=== PATIENT | female | born 1990 | race Caucasian/White ===

== ENCOUNTER 2024-11-30 11:04 | Outpatient (AMB) | payer OTHER, SELFPAY ==
--- OUTSIDE RECORDS SUMMARY | 2024-11-29 06:30 | XMS_ITS ---
Author Organization [facility] [address] Address [address] [place] [address] Care Team Providers Care Wet Sander Name Role Phone VICTOR HUGO THOMPSON Unavailable [phone] Encounters Encounter Location Date Provider Diagnosis [facility] [address] [place] [address] 11/29/2024 VICTOR HUGO THOMPSON Plan Of Treatment No Information Progress Notes * Mee CHAUDOB: 1 (34 yo F)Acc No.[id number]:11/29/2024 Progress Notes Patient: Srinivas CHAKRABORTYMee AGUILLON Provider: Amelia THOMPSON PA-C :1990 A ge:34 Y S ex:Female Date:11/29/2024 Address:[address] [place], [place] [id number] Subjective: * Chief Complaints: * * Medical History: Objective: * Vitals: Assessment: Plan: * Treatment: * Images: Billing Information: * Visit Code: * Procedure Codes: Care Plan Details* * Electronic signature of SHOBHA THOMPSON PA-C, [id number] on 11/30/2024 at 11:13 AM EDT Sign off status: Pending * Provider: Amelia THOMPSON PA-C Date: 11/29/2024 Generated for Luda duncan/[place]/eTransmitting on: 11/30/2024 11:13 AM EDT
--- NOTE | 2024-11-30 11:08 | MHC.PC.OV ---
Vital Signs 11/30/24 11:16 Height 5 ft Weight 123 lb 2 oz BMI 24.0 BP 98/67 Blood Pressure Location Lt brachial Position Sitting Respiration 12 Pulse 62 Pulse Source Pulse Oximeter Temp 97.1 F Temp Source Oral Pulse Oximetry (%) 99 Oxygen Delivery Method Room Air Intake Visit Reasons: CPE? Intake Note: New patient to establish care and cpe. Consumer Marketing Analyst Required: No Allergies amoxicillin Allergy (Severe, Verified 11/30/24 11:15) Hives nitrofurantoin (From Macrobid) Allergy (Severe, Verified 11/30/24 11:15) Hives Penicillins Allergy (Severe, Verified 11/30/24 11:15) Hives Sulfa (Sulfonamide Antibiotics) Allergy (Severe, Verified 11/30/24 11:15) Hives Medication List - Last Reviewed 11/30/24 by Abbi Jones MA No Known Home Meds Tobacco use date assessed: 11/30/24 Dental Screening Dental Screen Date: 11/30/24 Did you have a dental visit in the last 12 months?: Yes Did you have a dental problem in the last 6 months where you did not have access to dental care?: No Was dental information given to patient?: Patient has dentist HPI HPI Comments History of Present Illness Details 34 y/o F with MDD, PEARL, childhood Asthma, Hx of STD, acne, family hx breast ca, PMDD, Hx of H Pylori, Vit D def, Zinc def, Iodine def. Surgery:wisdom teeth Fhx: MGM vaginal & breast ca; MGF Ca unsure kind; PGF prostate Ca; PGM . Mom and dad alive and well. No siblings. No children. 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 - Previous asthma treatment; no current inhaler use. - Acne complaints with lesions on the back. - Positive test for low-level H. pylori; prior supplement treatment ineffective. - Hypothyroid-like symptoms including fatigue and altered voice. - Family history of breast and vaginal cancer. Past Surgical History - [place] teeth extraction. Family History - Paternal grandmother: breast cancer, vaginal cancer. - Paternal grandfather: cancer. - Both parents are alive and healthy. - No siblings, limited family with no children in the extended family. 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 - Lives with her boyfriend; frequently moved due to life circumstances. - Expressed potential plans for having children, considering adoption - Interested in seeing a cyber security instructor and managing current skin issues. Health Maintenance - Recent Pap smear in spring 2022. Results were normal. - Uncertain tetanus vaccination status within past 10 years; defers revaccination based on likelihood of previous immunization. - Supplements taken include Vitamin D, zinc, iodine, omega fatty acids. Review of Systems - Psychiatric: Reports depressive and anxiety symptoms. - Dermatological: Reports longstanding issues with acne; new lesions on the back. - Respiratory: Asthma, not currently on active treatment. - Gastrointestinal: Reports low H. pylori per stool test; no significant symptoms described. - Musculoskeletal: Voice liner roll changer the past few years, fatigue. - General: History of allergies to amoxicillin, Macrobid, penicillin, and sulfa. Physical Exam General: Well developed, well nourished, in no acute distress. Appears stated age. Head: Normocephalic, atraumatic. Eyes: Pupils are equal, round and reactive to light and accommodation. Conjunctivae are clear. Vision grossly normal. Ears: TMs clear AU, EACS WNL. Nose: Patent, without discharge. Neck: Supple, no adenopathy or thyromegaly. Breast: Edu on SBE Lungs: Clear to auscultation bilaterally. No rales, rhonchi or wheeze noted. Good air flow in all boo. Heart: Regular rate and rhythm. No murmurs, click, rubs or gallops are noted. Abdomen: Bowel sounds present in all quadrants. The abdomen is soft, nontender, with no masses or organomegaly noted. No hernias are noted. : Deferred. Reviewed ADDIS & recommendations for routine DRESSMAKING TEACHER. Pulses: Peripheral pulses are equal and palpable bilaterally. Extremities: No clubbing, cyanosis nor edema is noted. Neurologic: Gait and station normal. Cranial Nerves 2-12 intact. Motor strength grossly symmetrical and intact. No sensory loss. Balance normal. Skin: No rashes, ulcers, or lesions noted. Turgor is good. Skin color is good. Hair and nails are without abnormalities. Noted bumps on back, ? acne Psych: Normal eye contact, affect and mood appropriate, and normal interactions. Patient is alert and appropriate to context. Discussion Notes I discussed with the patient the current state of her mental health management and advised on continuing care with her existing psychiatrist due to the difficulties in finding local psychiatric care. I recommended a referral to a cyber security instructor to assess her dermatological concerns, specifically the lesions on her back. A referral to allergy and immunology was suggested for a medication challenge given her antibiotic allergies and the possibility of H. pylori treatment requirements. This was found by Functional [facility] doctor and hopefully will be treated as by her. We discussed the importance of maintaining regular check-ups and potential menopausal symptoms related to low iodine and possible thyroid involvement. I guided her on the utility of our patient portal to facilitate communication and manage her health records efficiently. Patient was given time to ask questions. All questions were answered to their satisfaction. Assessment and Plan 1. Major Depressive Disorder and Generalized Anxiety Disorder - Continue psychiatric management and counseling. 2. Asthma - childhood - No immediate inhaler prescription; monitor. 3. Acne - Dermatology referral. 4. H. pylori - Await claims account specialist input for potential antibiotic therapy should this be needed 5. Premenstrual Dysphoric Disorder - Monitor symptoms; refer to certified juvenile probation officer [place] labs as she had them done by functional [facility] MD> Patient Instructions - Use the patient portal for all communication. - Contact our office for any acute changes or emergencies. - Referrals for dermatology and allergy/immunology and DRESSMAKING TEACHER - Monitor and manage depressive and anxiety symptoms with current mental health provider. - Follow functional medicine guidance for H. pylori treatment. - RTO 1 year cpe sooner prn Consent Patient was informed and verbally consented to the use of an ambient scribe for clinic note documentation during this visit. An additional 15 minutes was spent addressing the problem(s) noted at todays visit. This includes time spent before the visit reviewing the chart, time spent during the visit, and time spent after the visit on documentation reviewing laboratory results, diagnostic imaging, medications, performing a medically necessary evaluation, counseling on diagnoses, care coordination, ordering appropriate tests, ordering appropriate medications, review of tests performed by other providers, reporting test results with the patient, communication with other healthcare providers. [facility] Medical History (Updated 11/30/24 @ 11:50 by Greta Norton [facility]) Allergic Anxiety and depression Asthma Eczema Memory loss Sinusitis STD (female) Surgical History (Updated 11/30/24 @ 11:19 by Abbi Jones MA) [place] teeth extracted Family History (Updated 11/30/24 @ 11:22 by Abbi Jones MA) Mother HTN (hypertension) Maternal Grandmother Vaginal cancer Paternal Grandfather Prostate cancer Maternal Grandfather Cancer Social History Household Members: Significant Other Both parents involved: No Caregiver staying overnight: No Housing: Apartment Are you a primary special needs child caregiver to a significant other at home: No Do you presently have visiting nurse or other home services: No 75 years or older and lives alone: No Alcohol intake: current Alcohol intake frequency: a few times a month Patient Tobacco Use Status: Never used Tobacco e-Cigarette/Vaping Use: Never Used Second Hand Smoke Exposure: No Current occupational status: employed 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 1. Little interest or pleasure in doing things: more than half the days 2. Feeling down, depressed, or hopeless: more than half the days 3. Trouble falling or staying asleep, or sleeping too much: more than half the days 4. Feeling tired or having little energy: more than half the days 5. Poor appetite or overeating: not at all 6. Feeling bad about yourself - or that you are a failure or have let yourself or your family down: several days 7. Trouble concentrating on things, such as reading the newspaper or watching television: not at all 8. Moving or speaking so slowly that other people could have noticed. Or the opposite - being so fidgety or restless that you have been moving around a lot more than usual: not at all 9. Thoughts that you would be better off or of hurting yourself in some way: not at all Total score: 9 Depression Screening Interpretation: Positive Depression Screening Follow-up: Existing condition and In treatment Depression Screening Done: Yes 24579 - PHQ-9 Billing: Yes Source: Developed by Drs. Mayito Mccloud, Eli Butler, Ap Duran and colleagues, with an educational seth from [employer]. Thrive Questionnaire Date Thrive assessed: 11/30/24 I am a: Patient What is your living situation today?: I have a steady place to live Within the past 12 months, did the food you bought not last and you didn't have the money to get more?: Never true Within the past 12 months, did you worry whether your food would run out before you got money to buy more?: Never true Do you have trouble paying for medicines?: No Do you have trouble getting transportation to medical appointments?: No Do you have trouble paying your heating and electricity bill?: No Do you have trouble taking care of your child, family member or friend?: No Do you have trouble with day-to-day activities such as bathing, preparing meals, shopping, managing finances, etc.?: No Are you currently unemployed and looking for a job?: Yes Are you interested in more education?: No Please select the resources that you would like help with: None Currently or been in a relationship where the following occur: No concerns reported THRIVE Score: 0 AUDIT C Alcohol Use Questionnaire (AUDIT-C) 1. How often do you have a drink containing alcohol?: Monthly or less 2. How many drinks containing alcohol do you have on a typical day when you are drinking?: 1 or 2 3. How often do you have six or more drinks on one occasion?: Never Total Score: 1 Score Reviewed/Action Taken: Yes PEARL-7 AMB Questionnaire PEARL-7 Date PEARL - 7 assessed: 11/30/24 Feeling nervous, anxious, or on edge: 2 = More than half the days Not being able to stop or control worryin = Several days Worrying too much about different things: 1 = Several days Trouble relaxin = Several days Being so restless that it is hard to sit still: 0 = Not at all Becoming easily annoyed or irritable: 1 = Several days Feeling afraid as if something awful might happen: 0 = Not at all Total PEARL-7 score (0-4 normal; 5-9 mild; 10-14 moderate; 15-21 severe): 6 Source: Developed by Drs. Mayito Mccloud, Eli Butler, Ap Duran and colleagues, with an educational seth from [employer]. PEARL-7 Assessment Billing PEARL-7 Assessment Tool: PEARL-7 Assessment 26737 ACT Questionnaire In the past 4 weeks, how much of the time did your asthma keep you from getting as much done at work, school or at home?: None of the time During the past 4 weeks, how often have you had shortness of breath?: Not at all During the past 4 weeks, how often did your asthma symptoms wake you up at night or earlier than usual in the morning?: Not at all During the past 4 weeks, how often have you had to use your rescue inhaler or nebulizer medication?: Not at all How would you rate your asthma control during the past 4 weeks?: Completely controlled ACT Interpretation: Negative Score: 25 Physical exam (Primary Care) Vital Signs: Last Vital Signs Temp 97.1 F 11/30/24 11:16 Pulse 62 11/30/24 11:16 Resp 12 11/30/24 11:16 BP 98/67 11/30/24 11:16 Pulse Ox 99 11/30/24 11:16 Oxygen Delivery Method Room Air 11/30/24 11:16 BMI result Body Mass Index 24.0 PHQ-9: PHQ-9 Score PHQ-9: Total score 9 11/30/24 11:10 Depression Screening Interpretation: Positive Depression Screening Follow-up: Existing condition and In treatment Thrive Assessment: Date of Thrive Assessment Date Thrive assessed 11/30/24 11/30/24 11:10 Currently or been in a relationship where the following occur: No concerns reported Coding Level of Care Code New Pt Level 2 (56290) New Pt Prev Care 18-39yr(30054 Diagnoses Encounter to establish care with new provider Z76.89 Acne, unspecified acne type L70.9 Acne type: unspecified acne Vitamin D deficiency E55.9 Zinc deficiency E60 Iodine deficiency E61.8 PMDD (premenstrual dysphoric disorder) F32.81 H. pylori infection A04.8 Mild episode of recurrent major depressive disorder F33.0 Major depression episode severity: mild PEARL (generalized anxiety disorder) F41.1 Tetanus, diphtheria, and acellular pertussis (Tdap) vaccination declined Z28.21 Penicillin allergy Z88.0 History of asthma Z87.09 Family history of breast cancer Z80.3 History of Papanicolaou smear of cervix Z92.89 Encounter for general adult medical examination without abnormal findings Z00.00 Additional Codes PEARL-7 Assessment Billing - PEARL-7 Assessment Tool: PEARL-7 Assessment 07090 ([id number]) PHQ-9 - 59092 - PHQ-9 Billing: Yes ([id number]) Asthma Control Questionnaire - ACT Interpretation: Negative ([id number]) Assessment & Plan Assessment & Plan (1) Encounter to establish care with new provider: Code(s): Z76.89 - Persons encountering health services in other specified circumstances (2) Acne: Code(s): L70.9 - Acne, unspecified Category: Medical Qualifiers: Acne type: unspecified acne Qualified Code(s): L70.9 - Acne, unspecified (3) Vitamin D deficiency: Code(s): E55.9 - Vitamin D deficiency, unspecified Category: Medical (4) Zinc deficiency: Code(s): E60 - Dietary zinc deficiency Category: Medical (5) Iodine deficiency: Code(s): E61.8 - Deficiency of other specified nutrient elements Category: Medical (6) PMDD (premenstrual dysphoric disorder): Code(s): F32.81 - Premenstrual dysphoric disorder Category: Medical (7) H. pylori infection: Code(s): A04.8 - Other specified bacterial intestinal infections Category: Medical (8) MDD (major depressive disorder), recurrent episode: Code(s): F33.9 - Major depressive disorder, recurrent, unspecified Category: Medical Qualifiers: Major depression episode severity: mild Qualified Code(s): F33.0 - Major depressive disorder, recurrent, mild (9) PEARL (generalized anxiety disorder): Code(s): F41.1 - Generalized anxiety disorder Category: Medical (10) Tetanus, diphtheria, and acellular pertussis (Tdap) vaccination declined: Code(s): Z28.21 - Immunization not carried out because of patient refusal Category: Medical (11) Penicillin allergy: Code(s): Z88.0 - Allergy status to penicillin Category: Medical (12) History of asthma: Code(s): Z87.09 - Personal history of other diseases of the respiratory system Category: Medical (13) [place] history of breast cancer: [place] [facility] [place] Code(s): Z80.3 - Family history of malignant neoplasm of breast Category: Medical (14) History of Papanicolaou smear of cervix: Onset Date: ~2023 Code(s): Z92.89 - Personal history of other medical treatment Category: Medical (15) Encounter for general adult medical examination without abnormal findings: Onset Date: ~11/30/24 Code(s): Z00.00 - Encounter for general adult medical examination without abnormal findings Category: Medical Plan . Orders: Referrals EXECUTOR OF ESTATE Referral Z12.4 - Encounter for screening for malignant neoplasm of cervix Dermatology Referral L70.9 - Acne, unspecified Allergy & Immunology Referral Z88.0 - Allergy status to penicillin Patient Instructions: Walk-In Care (Urgent Care): We Make it Easy Walk-in for urgent medical issues such as: ? Seasonal Allergies ? Insect Bites ? Cough ? Diarrhea ? Acute Asthma Attacks ? Back, Knee or Joint Pain ? Ear Infection ? Fever without a Rash ? Headaches ? Nausea ? [place], Rash or Skin Irritation ? Sore Throat ? Sports Physicals ? Vomiting Most insurances are accepted. Patients do not need to be part of the [facility] to seek care at the walk-in clinic. Locations [facility] [place] [address] ? [phone] [facility] Walk-In Care in [place] provides services to ages 18 and over. Open Tuesday-Tuesday: 8 a.m. to 5 p.m. and Tuesday: 9 a.m. to 3 p.m.* *Hours may vary due to staffing availability. To confirm Walk-In Care hours in [place], please call [phone]. [address] [place] [address] ? [phone] [facility] Walk-In Care in [place] provides services to ages 12 and over. Open Tuesday-Tuesday: 8 a.m. to 5 p.m. Hours may vary due to staffing availability. To confirm Walk-In Care hours in [place], please call [phone]. LABORATORY SERVICES: [facility] Lab ? Primary Location [address] [place] [address] Tuesday through Tuesday 6:00 AM ? 5:00 PM Tuesday 7:00 AM ? 11:00 AM* [phone] The [facility] Lab is centrally located near the front entrance of the [facility] for easy outpatient access. Convenient parking is provided for outpatients. *Hours may vary due to staffing availability. To confirm Laboratory hours for any location, please call [phone]. Offsite Location For your convenience, we offer offsite laboratory draw stations at the following locations: [address] [place] [address] ? [facility] [address] [facility], [address], [place] Tuesday through Tuesday 7:30 AM ? 1:00 PM* [phone] *Hours may vary due to staffing availability. To confirm Laboratory hours for any location, please call [phone]. [place] ? [address] Tuesday through Tuesday 6:00 AM ? 3:30 PM* Tuesday 6:30 AM ? 3 PM* [phone] *Hours may vary due to staffing availability. To confirm Laboratory hours for any location, please call [phone] [place] [address] Tuesday through Tuesday 7:30 AM ? 4:00 PM* [phone] *Hours may vary due to staffing availability. To confirm Laboratory hours for any location, please call [phone] [place] [address] Tuesday through 9:00 AM ? 4:00 PM* *Hours may vary due to staffing availability. To confirm Laboratory hours for any location, please call [phone]. Appointments are not necessary. Walk-ins are welcome. Like all the departments throughout the [facility], our Lab undergoes frequent reviews to ensure the quality and accuracy of test results, and our staff takes special pride in its status as a nationally accredited facility. Patient Portal: ONE PATIENT. ONE RECORD. BETTER CARE. [facility] has a fully integrated, cutting-edge mobile electronic health information system that has revolutionized the way we care for our patients and manage our organization. This system improves communication and coordination enabling us to provide safe, higher-quality care, and an overall positive experience for staff and patients. Our first priority, as always, is to deliver the highest quality care possible. The system is running in the background supporting that priority. This portal is for all [facility] services and practices. If you are experiencing any technical difficulties with enrolling or logging into the Patient Portal please complete the [facility] Patient Portal Technical Support Form. [facility] now offers a new secure on-line interactive tool for patients to review their health information ? ?Patient Portal. This interactive web portal will enable patients and their families to take an active role in their care by providing easy, secure access to their health information via the internet. The Patient Portal provides patients with instant access to their health information, including laboratory results, medications, allergies, demographic information, visit history, and more. In addition to managing their own care, parents and health care proxies with authorized consent will appreciate the ability to access the records of those individuals for whom they provide care. Please note: if you wish to gain access (Proxy) to another patient?s portal, you will be required to come to the Medical Records Department in person at [facility]. Both the patient giving proxy access and the proxy will need to provide photo identification and complete the appropriate authorization. The Patient Portal also allows track their appointments online. The [facility] Patient Portal also saves patients time by allowing them to submit updates to their demographic and contact information prior to their visits. Portal email notifications will also alert patients to any new activity on their portal, such as test results and new appointments. In order to initially enroll in the [facility] Patient Portal, you will need to enter some required information including the following: your [facility] Medical Record number your personal home email address name date of Please note: In order to enroll in the [facility] Patient Portal, we need to have your email address on file in your electronic medical record. ?The email address needs to be specific for one person (yourself) in order for your Portal enrollment to be successful. ?You can update your email address in person with our Registration staff when you are registering for a hospital visit. ?Otherwise, you will need to come to the Health Information Management (Medical Records) Department at [facility]. ?We are open from Tuesday ? Tuesday from 7:30 a.m. ? 4:30 p.m. ?You will be required to present a photo id. Once you have successfully enrolled in the Patient Portal, you will receive a one-time user id and password for the Portal, sent to your email address. ?This will allow you to log into the Patient Portal within 99 hrs and reset your own logon id and password, and define personal security questions. ?Once your permanent login and password have been set, you can log into the [facility] Patient Portal at any time via the blue button above or from the Portal Logon button on any page of the [facility] website. [facility] encourage all of our patients to enroll in Patient Portal as it presents a valuable opportunity for patients and their families to actively participate in their care and stay healthy Welcome to [facility]. ?We look forward to working with you. Health screenings for women You should visit your health care provider from time to time, even if you are healthy. The purpose of these visits is to: Screen for medical issues Assess your risk for future medical problems Encourage a healthy lifestyle Update vaccinations and other preventive care services Help you get to know your provider in case of an illness Information Even if you feel fine, you should still see your provider for regular checkups. These visits can help you avoid problems in the future. For example, the only way to find out if you have high blood pressure is to have it checked regularly. High blood sugar and high cholesterol levels also may not have any symptoms in the early stages. A simple blood test can check for these conditions. There are specific times when you should see your provider or receive specific health screenings. The [place] Preventive Services Task Force publishes a list of recommended screenings. Below are screening guidelines for women ages 18 to 39. BLOOD PRESSURE SCREENING Your blood pressure should be checked at least once every 3 to 5 years if: Your blood pressure is in the normal range (top number less than 120 mm Hg and bottom number less than 80 mm Hg) You don't have risk factors for high blood pressure Ask your provider if you need your blood pressure checked more often if: The top number is 120 to 129 mm Hg or the bottom number is 70 to 79 mm Hg You have diabetes, heart disease, kidney problems, are overweight, or have certain other health conditions You have a first-degree relative with high blood pressure You are Black You had high blood pressure during a If the top number is 130 mm Hg or greater or the bottom number is 80 mm Hg or greater, this is considered stage 1 hypertension. Schedule an appointment with your provider to learn how you can reduce your blood pressure. Watch for blood pressure screenings in your area. Ask your provider if you can stop in to have your blood pressure checked. BREAST CANCER SCREENING Experts do not agree about the benefits of breast self-exams in finding breast cancer or saving lives. Talk to your provider about what is best for you. A screening mammogram is not recommended for most women under age 40. Your provider may discuss and recommend mammograms, MRI scans, or ultrasounds if you have an increased risk for breast cancer, such as: A mother or sister who had breast cancer at a young age (most often starting screening earlier than the age the close relative was diagnosed) You carry a high-risk genetic marker CERVICAL CANCER SCREENING Cervical cancer screening should start at age 21 years unless your provider advises otherwise. After the first test: Women ages 21 through 29 should have a Pap test every 3 years. Exoprts do not agree on whether HPV testing is recommended for this age group. Women ages 30 through 65 should be screened with either a Pap test every 3 years or the HPV test every 5 years or both tests every 5 years (called cotesting ). Women who have been treated for precancer (cervical dysplasia) should continue to have Pap tests for 20 years after treatment or until age 65, whichever is longer. If you have had your uterus and cervix removed (total hysterectomy), and you have not been diagnosed with cervical cancer or precancer (high grade cervical neoplasia), you do not need cervical cancer screening. CHOLESTEROL SCREENING Cholesterol screening should begin at: Age 45 for women with no known risk factors for coronary heart disease Age 20 for women with known risk factors for coronary heart disease Repeat cholesterol screening should take place: Every 5 years for women with normal cholesterol levels More often if changes occur in lifestyle (including weight gain and diet) More often if you have diabetes, heart disease, kidney problems, or certain other conditions DIABETES SCREENING You should be screened for diabetes starting at age 35 and then repeated every 3 years if you have no risk factors for diabetes. Screening may need to start earlier and be repeated more often if you have other risk factors for diabetes, such as: You have a first degree relative with diabetes. You are overweight or have obesity. You have high blood pressure, prediabetes, or a history of heart disease. Screening for diabetes should be done if you are planning to become and you are overweight and have other risk factors such as high blood pressure. DENTAL EXAM Go to the dentist once or twice every year for an exam and cleaning. Your dentist will evaluate if you need more frequent visits. EYE EXAM Have an eye exam every 5 to 10 years before age 40. If you have vision problems, have an eye exam every 2 years or more often if recommended by your provider. You should have an eye exam that includes an examination of your retina (back of your eye) at least every year if you have diabetes. IMMUNIZATIONS Commonly needed vaccines include: Flu shot: get one every year. COVID-19 vaccine: ask your provider what is best for you. Tetanus-diphtheria and acellular pertussis (Tdap) vaccine: have one at or after age 19 as one of your tetanus-diphtheria vaccines if you did not receive it as an adolescent. Tetanus-diphtheria: have a booster (or Tdap) every 10 years. Varicella vaccine: receive 2 doses if you never had chickenpox or the varicella vaccine. Hepatitis B vaccine: receive 2, 3, or 4 doses, depending on your exact circumstances. Measles, mumps, and rubella (MMR) vaccine: receive 1 to 2 doses if you are not already immune to MMR. Your provider can tell you if you are immune. Ask your provider about the human papillomavirus (HPV) vaccine if: You have not received the HPV vaccine in the past You have not completed the full vaccine series (you should catch up on this shot) Ask your provider if you should receive other immunizations if you have certain health problems that increase your risk for some diseases such as pneumonia. INFECTIOUS DISEASE SCREENING Women who are sexually active should be screened for chlamydia and gonorrhea up until age 25. Women 25 years and older should be screened for chlamydia and gonorrhea if at high risk. Screening for hepatitis C: All adults ages 18 to 79 should get a one-time test for hepatitis C. people should be screened at every . Screening for human immunodeficiency virus (HIV): All people ages 15 to 65 should get a one-time test for HIV. Depending on your lifestyle and medical history, you may also need to be screened for infections such as syphilis and HIV, as well as other infections. PHYSICAL EXAM All adults should visit their provider from time to time, even if they are healthy. The purpose of these visits is to: Screen for disease Assess your risk of future medical problems Encourage a healthy lifestyle Update your vaccinations and other preventive care services Maintain a relationship with a provider in case of an illness Your height, weight, and BMI should be checked at every exam. During your exam, your provider may ask you about: Depression and anxiety Diet and exercise Alcohol and tobacco use Safety issues, such as using seat belts, smoke detectors, and intimate partner violence Your medicines and risk for interactions SKIN SELF-EXAM Your provider may check your skin for signs of skin cancer, especially if you're at high risk, such as if you: Have had skin cancer before Have close relatives with skin cancer Have a weakened immune system OTHER SCREENING Talk with your provider about colon cancer screening if you have a strong family history of colon cancer or polyps, or if you have had inflammatory bowel disease or polyps yourself. Routine bone density screening of women under 40 is not recommended. [place] Suicide and Crisis Lifeline: Available 24 hours a day, 7 days a week, 365 days a year Dial 988 with any telephone to speak to someone immediately [address] [address] , Walk [facility] (Mental / Behavioral health therapist: [address] [place] [address] [facility] at [facility]: [address] [place] [address] Open from 10am - 12pm (walk [facility]) [facility] Crisis Services: [address] [place] [address] Walk in hours from 10am - 12pm Behavioral health Network: [address] [place] [address] [place] [address] Tuesday through Tuesday 8am - 8pm Tuesday and Tuesday 9am - 5pm Crisis Hotlines Suicide prevention, domestic violence, and other crisis hotlines for youth, young adults, and their friends and families. National Runaway Safeline: The National Runaway Safeline helps youth who have run away, are thinking about running away, or who already ran away but are ready to come home. Parents and guardians can also contact the hotline if they are worried about their child running away or if their child has already left home. The hotline is available 24 hours a day, seven days a week. Youth, parents, and guardians can also use the online chat feature on the [facility]'s website to ask for help and get support, [place] [address]. [facility] National Suicide Prevention Lifeline: The National Suicide Prevention Lifeline is a network of local crisis centers that are available 24/ to provide support for youth and adults who are in any kind of emotional crisis. In addition to the main hotline number listed above, there are several other numbers to call depending on your needs: German Language: Deaf and Hard of Hearin1-814.836.6971 Veterans: Disaster Distress: Anyone can also use their online chat feature on their website. [place] Suicide Prevention Lifeline [facility] Helpline: The [facility] Helpline is available to anyone in [place] who is need of emotional support. Anyone can call or text the helpline to receive help from specially trained volunteers. [place] high school and college students can also get online support through the IMHear_ program. For high school students, volunteers ages 15-18 are available Tuesday- from 6-9PM. For college students, IMHear_ is available Tuesday-Tuesday from 5-9PM. The Alex Project - The Alex Project is a 22/11 crisis intervention and suicide prevention hotline for LGBTQ youth. Youth can also text Alex to for support, or use the online chat feature on the Alex Project's website. TrevorText is available Tuesday-Tuesday between 3-10PM. TrevorChat is available seven days a week between 3-10PM. SafeLink: SafeLink is for anyone who is being affected by domestic violence or dating violence. Volunteers at SafeLink speak Spanish and German, and [employer]Link also has a service that can provide translation in more than 130 languages. TTY:
--- OUTSIDE RECORDS SUMMARY | 2024-11-30 11:13 | XMS_ITS | Encounter Summary ---
Author Organization [facility] Address [address] [place] [address] Care Team Providers Care Tower Erector Helper Name Role Phone Pcp, No Primary Care Provider Unavailabl e Encounter Details Date Type Department Care Team (Late st Contact Info) Description 02/09/2024 Scanned Document [address] [phone] Provider, Generic Social History Tobacco Use Types Packs/Day Years Used Date Smoking Tobacco: Never Assessed Comments Unknown Sex and Gender Information Value Date Recorded Sex Assigned at Not on file Legal Sex Female 1:07 PM EDT Gender Identity Not on file Sexual Orientation Not on file documented as of this encounter Plan of Treatment Not on file documented as of this encounter Visit Diagnoses Not on filedocumented in this encounter Care Teams Tower Erector Helper Relationship Specialty Start Date End Date Pcp, No PCP - General General Medicine 10/04/23 documented as of this encounter
--- OUTSIDE RECORDS SUMMARY | 2024-11-30 11:13 | XMS_ITS | Clinical Summary ---
Author Organization [facility] ity Address [address] [place] [address] Care Team Providers Care Intelligence Engineer Name Role Phone Unavailable Primary Care Provider Unavailabl e Social History Tobacco Use Types Packs/Day Years Used Date Smoking Tobacco: Never Assessed Comments Unknown Sex and Gender Information Value Date Recorded Sex Assigned at Not on file Legal Sex Female 1:45 PM EDT Gender Identity Not on file Sexual Orientation Not on file Plan of Treatment Health Maintenance Due Date Last Done Comments DTaP,Tdap,and Td Vaccines (1 - Tdap) 2010 Hepatitis B Vaccines (1 of 3 - 19+ 3-dose series) 2010 Cervical Cancer Screening: P ap Smear 02/02/2012 COVID-19 Vaccine (2023-2 5 season) 2024 HIV Screening 02/09/2024 Hepatitis C Screening 02/09/2024 Social Influencers of Health Screening 02/09/2024 Depression Screening 05/02/2024 Influenza Vaccine (#1) 2024 HIB Vaccines Aged Out No longer eligi ble based on patient's age to complete this topic HPV Vaccines Aged Out No longer eligi ble based on patient's age to complete this topic Hepatitis A Vaccines Aged Out No long er eligible based on patient's age to complete this topic IPV Vaccines Aged Out No longer eligi ble based on patient's age to complete this topic MMR Vaccines Aged Out No longer eligi ble based on patient's age to complete this topic Meningococcal ACWY Vaccine Aged Out N o longer eligible based on patient's age to complete this topic Meningococcal B Vaccine Aged Out No l onger eligible based on patient's age to complete this topic Pneumococcal Vaccine: Pediat rics (0 to 5 Years) and At-Risk Patients (6 to 49 Years) Aged Out No longer eligible b ased on patient's age to complete this topic RSV Immunization Patients Un sylvia 20 months Aged Out No longer eligible b ased on patient's age to complete this topic Varicella Vaccines Aged Out No longer eligible based on patient's age to complete this topic
--- OUTSIDE RECORDS SUMMARY | 2024-11-30 11:13 | XMS_ITS | Clinical Summary ---
Author Organization [facility] Address [address] [place] [address] Care Team Providers Care It Systems Manager Name Role Phone Unavailable Primary Care Provider Unavailabl e Social History Tobacco Use Types Packs/Day Years Used Date Smoking Tobacco: Never Assessed Sex and Gender Information Value Date Recorded Sex Assigned at Female 10/18/2023 2:00 PM EDT Gender Identity Not on file Sexual Orientation Not on file Job Start Date Occupation Industry Not on file Not on file Not on file Plan of Treatment Health Maintenance Due Date Last Done Comments Hepatitis B Vaccines (1 of 3 - 3-dose series) 1991 Hepatitis C Screening 1991 COVID-19 Vaccine (#1) 1991 Depression Screening 2003 Preventative Health Evaluation 2009 DTap / Tdap / Td (1 - Tdap) 2010 Cervical Cancer Screening (P ap Smear) 05/06/2017 05/06/2014 Influenza Vaccine (#1) 2024 Pneumococcal Vaccine Aged Out No long er eligible based on patient's age to complete this topic RSV Ped < 20 months Aged Out No longe r eligible based on patient's age to complete this topic
--- OUTSIDE RECORDS SUMMARY | 2024-11-30 11:14 | XMS_ITS | Clinical Summary ---
Author Organization [facility] Address [address] [place] [address] Care Team Providers Care Disk And Tape Machine Tender Name Role Phone Unavailable Primary Care Provider Unavailabl e Source Comments PLEASE NOTE, if this patient is a minor, it may be UNLAWFUL to discuss sensitive information that is contained in these records (such as FAMILY PLANNING, MENTAL HEALTH or SUBSTANCE ABUSE) with the minor patient's parent or other person without the patient's specific authorization.[facility] Allergies Active Allergy Reactions Criticality Noted Date Comments Amoxicillin 02/22/2023 Nitrofurantoin Monohyd/M-Cryst 02/22 Penicillins Hives,Unknown Medium 11/05/2014 Sulfa (Sulfonamide Antibiotics) Hives High 10/2014 Medications sertraline (ZOLOFT) 25 mg tablet Take 25 mg by mouth once daily 02/21/2023 Active cephalexin 500 mg tabIndications:A cute cystitis without hematuria Take 500 mg by mouth 2 (two) times daily 14 Tablet 02/24/2023 Active Social History Tobacco Use Types Packs/Day Years Used Date Smoking Tobacco: Never Assessed Social Connections Answer Date Recorded Connectedness 0 01/15/2024 Financial Resource Strain Answer Date R ecorded Financial Resource Strain 0 2022 Stress Answer Date Recorded Stress 0 02/22/2023 Physical Activity Answer Date Recorded Physical Activity 0 02/22/2023 Food Insecurity Answer Date Recorded Food 0 01/26/2024 Transportation Needs Answer Date Record ed Transportation 0 02/22/2023 Housing Stability Answer Date Recorded Housing 0 02/22/2023 Safety and Environment Answer Date Ryne rded Safety 0 02/22/2023 Utilities Answer Date Recorded Utilities 0 02/22/2023 Employment Answer Date Recorded Stress 0 01/15/2024 Comments No Sex and Gender Information Value Date Recorded Sex Assigned at Not on file Legal Sex Female 12:56 PM PDT Gender Identity Female 02/22/2023 6:57 PM PDT Sexual Orientation Not on file Last Filed Vital Signs Vital Sign Reading Time Taken Comments Blood Pressure - - Pulse - - Temperature 36.4 C (97.5 F) 02/22/2023 7:00 PM PDT Respiratory Rate - - Oxygen Saturation - - Inhaled Oxygen Concentration - - Weight - - Height - - Body Mass Index - - Plan of Treatment Health Maintenance Due Date Last Done Comments Anxiety Screening 1991 HPV Screening 1991 Hepatitis C Screening 1991 Pap + HPV 1991 Tobacco Screening 1991 Syphilis Screening 02/02/2005 Relationship Safety Screening/Counseling 2006 Hypertension Screening (#1) 2009 Imm-Hepatitis B (1 of 3 - 19 + 3-dose series) 2010 Cervical Cancer Screening 02/02/2012 Pap Smear 02/02/2012 [id number] () 01/01/2024 04/23/2022, 09/01/2020, 08/11/2020 Alcohol and Drug Screen 05/02/2024 Depression Annual Screen 05/02/2024 Imm-Influenza (#1) 2024 Imm-DTaP/Tdap/Td (2 - Td or Tdap) 02/04/2026 016 HIV Screening Completed 02/22/2023 Cervical Ablation/Cold-Knife Conization Discontinued Cervical Cryotherapy Discontinued Colposcopy Discontinued Endometrial Biopsy Discontinued Excision/Leep Discontinued HPV Genotyping Discontinued Vaginal Pap Discontinued Vulvoscopy Discontinued Procedures Procedure Name Priority Date/Time Associated Diagnosis Comments HIV-1/2 AG/AB COMBO, ALERE (POCT) Routine 02/22/2023 7:29 PM PDT Encounter for surveillance of other contraceptives High risk sexual behavior, unspecified type from Last 3 Months or Most Recently Relevant to Health Maintenance Results * HIV-1/2 AG/AB COMBO, ALERE (POCT) (02/22/2023 7:29 PM PDT) HIV 1 AG NON-REACTI VE (NEGATIVE) NON-REACTI VE [facility] HIV 1/2 AB NON-REACTI VE (NEGATIVE) NON-REACTI VE [facility] INTERNAL CONTROL PASS PASS [facility] Blood Blood / Unknown 02/22/2023 7 :29 PM PDT us [facility] - BLOOD AW Final Result PP [facility] [address] [place] [address], [place] [phone] from Last 3 Months or Most Recently Relevant to Health Maintenance Insurance [facility]
[2024-11-30 11:16] VITALS: BP 98/67; PULSE 62; RESP 12; TEMP 36.2; O2SAT 99; BMI 24.0
== END 2024-11-30 11:45 | disposition home or self-care (01) ==
LOC: HO.HMCFM 11:05
PROVIDERS: PCP Nurse Practitioner Family; Visit Provider Nurse Practitioner Family
DX: Z00.00 Encounter for general adult medical examination without abnormal findings (principal); F32.81 Premenstrual dysphoric disorder; L70.9 Acne, unspecified; E55.9 Vitamin D deficiency, unspecified; E60 Dietary zinc deficiency; E61.8 Deficiency of other specified nutrient elements; A04.8 Other specified bacterial intestinal infections; F33.0 Major depressive disorder, recurrent, mild; Z88.0 Allergy status to penicillin; F41.1 Generalized anxiety disorder; Z28.21 Immunization not carried out because of patient refusal; Z87.09 Personal history of other diseases of the respiratory system

== ENCOUNTER → 2024-11-30 11:04 | Outpatient (BNVA) | payer OTHER, SELFPAY | PROVIDERS: PCP Nurse Practitioner Family; Visit Provider Nurse Practitioner Family | DX: Z00.00 Encounter for general adult medical examination without abnormal findings (principal); Z76.89 Persons encountering health services in other specified circumstances; L70.9 Acne, unspecified; E55.9 Vitamin D deficiency, unspecified; E60 Dietary zinc deficiency; E61.8 Deficiency of other specified nutrient elements; A04.8 Other specified bacterial intestinal infections; F33.0 Major depressive disorder, recurrent, mild; F41.1 Generalized anxiety disorder; Z87.09 Personal history of other diseases of the respiratory system; Z92.89 Personal history of other medical treatment; Z80.3 Family history of malignant neoplasm of breast; Z28.21 Immunization not carried out because of patient refusal; Z88.0 Allergy status to penicillin; Z13.31 Encounter for screening for depression; Z13.39 Encounter for screening examination for other mental health and behavioral disorders | CPT/HCPCS: 96127; 96160; 99202; 99385 ==